=== PATIENT | male | born 1965 | race Caucasian/White ===

== ENCOUNTER 2016-05-23 09:35 | Day surgery (SDC) | payer BC ==
[~2016-05-23] VITALS: Ht 188 cm; Wt 106.7 kg
--- NOTE | 2016-06-02 09:08 | OR ---
ADMIT: 05/23/2016 RM/LOC: [facility] MR#: [id number] [id number] CYRUS SARAH [address] [place] [address] Operative/Delivery Room Report SEX: M AGE: 51 : 1965 SURGERY DATE: 05/23/2016 SURGEON: Juve Serrato MD PREOPERATIVE DIAGNOSIS: Status post rectal resection with coloanal anastomosis for rectal cancer, now with anastomotic stricture. POSTOPERATIVE DIAGNOSIS: Tight stricture at the coloanal anastomosis. PROCEDURE PERFORMED: Colonoscopy with dilation with Hegar dilators up to a maximal diameter of 22 mm. ANESTHESIA: Sedation. ESTIMATED BLOOD LOSS: None. DESCRIPTION OF PROCEDURE: After appropriate informed consent was obtained, the patient was brought to the endoscopy suite. IV sedation was provided. Rectal exam revealed a very low anastomosis just above the dentate line. No evidence of hemorrhoids. There was a very tight stricture at this anastomosis. I inserted the scope to just take a look at this area and it be would not open up just with insufflation. So, I used a series of Hegar dilators, starting with just very small dilators just a few mm in size and then slowly I dilated that up to about 14 mm to start with. I then reintroduced the scope, I could see through the anastomosis up into the lumen of the colon and I was actually able to advance the scope through this area easily. So, I then completed the colonoscopy. The colonic mucosa appeared normal throughout all the way to the cecum. He did have quite a bit of inspissated really hard mucous in the right colon that I was unable to irrigate out, but what I could see is the ileocecal valve appeared normal, appendiceal orifice appeared normal, and cecum appeared normal. The scope was slowly and carefully withdrawn. Again, the entire colonic mucosa inspected on the way out and this all appeared normal. I brought this back down to the anastomosis site which again was pretty open with my initial dilation ADMIT: 05/23/2016 RM/LOC: [facility] MR#: [id number] [id number] [address] [place] [address] Operative/Delivery Room Report SEX: M AGE: 51 : 1965 attempts. I removed the scope and then used a series of Hegar dilators still to go up to a maximal diameter of 22 mm. This appeared mostly to just be a mucosal stricture. The bowel opened up nicely. The scope was then reintroduced and I took a picture of this anastomosis as it was wide open, just with insufflation it stayed open nicely. There was no evidence of any fistula, everything appeared to be covered nicely with mucosa, so again no pockets or fistula sites or diverticula off the anastomosis. The anastomosis was irrigated. There was no active bleeding. The scope was then removed without apparent complications. The patient tolerated the procedure well and was taken to the recovery room in stable condition. Juve Serrato MD/ tolu JOB #: [id number] CC: Juve Serrato, Attending Physician Henrik Mccauley, Family Physician Thomas Marie MD, [facility]
== END 2016-05-23 13:40 | disposition home or self-care (01) ==
LOC: SSS 09:35
DX: K62.4 Stenosis of anus and rectum (principal); G47.30 Sleep apnea, unspecified; Z79.899 Other long term (current) drug therapy; Z85.048 Personal history of other malignant neoplasm of rectum, rectosigmoid junction, and anus; Z98.890 Other specified postprocedural states

== ENCOUNTER → 2016-08-19 | Outpatient (CLI) | payer BC | END | disposition home or self-care (01) | LOC: RAD.S 12:12 | DX: M54.9 Dorsalgia, unspecified (principal); M51.87 Other intervertebral disc disorders, lumbosacral region; M47.896 Other spondylosis, lumbar region; M43.17 Spondylolisthesis, lumbosacral region; I10 Essential (primary) hypertension; Z85.048 Personal history of other malignant neoplasm of rectum, rectosigmoid junction, and anus ==